=== PATIENT | male | born 1985 | race Two or more races ===

== ENCOUNTER 2022-09-12 09:45 | Emergency (ER) | payer OTHER ==
[~2022-09-12] VITALS: Ht 193 cm; Wt 127.0 kg
[~2022-09-12 09:45] MED LIST: PREVACID30 MG PO
== END 2022-09-12 10:53 | disposition home or self-care (01) ==
LOC: ER 09:45
DX: S90.121A Contusion of right lesser toe(s) without damage to nail, initial encounter (principal); X58.XXXA Exposure to other specified factors, initial encounter; Y93.89 Activity, other specified; Y92.89 Other specified places as the place of occurrence of the external cause; Y99.9 Unspecified external cause status